=== PATIENT | female | born 1960 | race Caucasian/White ===

== ENCOUNTER 2022-03-20 09:20 | Day surgery (SDC) | payer OTHER ==
[~2022-03-20] VITALS: Ht 157.5 cm; Wt 60.0 kg
[~2022-03-20 09:20] MED LIST: LIDOCAINE/PF 2% 5 ML VIAL ID ONE; PROPOFOL 1% 20 ML VIAL IVP ONE
[2022-03-20 09:44] LABS: COVID AG,FIA SOURCE NASOPHARYNGEAL
[2022-03-20] MEDS ORDERED: SODIUM CHLORIDE 0.9% 1,000 ML IV ONE (09:45)
== END 2022-03-20 13:35 | disposition home or self-care (01) ==
LOC: SDS 09:20
PROVIDERS: ATTEND Internal Medicine Gastroenterology
DX: K29.50 Unspecified chronic gastritis without bleeding (principal); K44.9 Diaphragmatic hernia without obstruction or gangrene; Z86.010 Personal history of colon polyps; Z79.899 Other long term (current) drug therapy; Z98.890 Other specified postprocedural states
CPT/HCPCS: 43239; 87426; 88305; 88312; 88313; C1769; J2704; J3490; C9803

== ENCOUNTER 2022-04-16 16:43 | Emergency (ER) | payer OTHER ==
[~2022-04-16] VITALS: Ht 157.5 cm; Wt 61.4 kg
[2022-04-16] MEDS ORDERED: ACETAMINOPHEN 500 MG TABLET PO ONE (18:15)
[2022-04-16] MEDS ORDERED: BACLOFEN 10 MG TABLET PO ONE (18:15)
[2022-04-16] MEDS ORDERED: LIDOCAINE 5% TRANSDERMAL PATCH TD ONE (18:15)
[2022-04-16] MEDS ORDERED: LIDO700A15 TP (18:56)
[2022-04-16] MEDS ORDERED: BACL10TA PO (18:56)
[2022-04-16] MEDS ORDERED: ACET-3385 PO (18:57)
[2022-04-16 19:33] VITALS: BP 125/77
== END 2022-04-16 19:51 | disposition home or self-care (01) ==
LOC: EMS 16:44
DX: M54.89 Other dorsalgia (principal); Z91.013 Allergy to seafood
CPT/HCPCS: 99284; Z7502; Z7610